=== PATIENT | male | born 1990 | race Asian ===

== ENCOUNTER 2020-01-13 08:47 | Emergency (ER) | payer MEDICAID ==
[~2020-01-13] VITALS: Ht 170.2 cm; Wt 94.1 kg
[2020-01-13] MEDS ORDERED: TRAM100T27 PO (09:40)
[2020-01-13 10:02] VITALS: BP 135/93
== END 2020-01-13 10:05 | disposition home or self-care (01) ==
LOC: ER 08:48
DX: S93.692A Other sprain of left foot, initial encounter (principal); Z88.6 Allergy status to analgesic agent; W18.39XA Other fall on same level, initial encounter; Y93.89 Activity, other specified; Y92.89 Other specified places as the place of occurrence of the external cause; Y99.8 Other external cause status
CPT/HCPCS: 73610; 73630; 99284